=== PATIENT | female | born 1960 | race Caucasian/White ===

== ENCOUNTER 2017-11-13 21:42 | Emergency (ER) | payer BC ==
[~2017-11-13 21:42] MED LIST: ATEN25 PO; Adult Low Dose81 MG PO; CLON.5; LORA1; MELA3 PO; NARA2.5 PO; ONDA4ODT PO; OXYC5; Omeprazole20 M1 PO; SIME80CH PO; TOPI50 PO; UNISOM25 MG PO; Zoloft50 MG PO
== END 2017-11-13 22:14 | disposition left against medical advice (07) ==
LOC: ER 21:42
DX: Z53.21 Procedure and treatment not carried out due to patient leaving prior to being seen by health care provider (principal)